=== PATIENT | female | born 1990 | race African-American/Black ===

== ENCOUNTER 2017-04-02 11:31 | Emergency (ER) | payer BC ==
[~2017-04-02] VITALS: Ht 165.1 cm; Wt 61.2 kg
[2017-04-02 11:48] VITALS: BP 119/76
[2017-04-02] MEDS ORDERED: HYDROcodone/APAP 5/325MG 1 TAB TABLET PO ONE (12:00)
[2017-04-02] MEDS ORDERED: AMOXICILLIN 250 MG CAPSULE. PO ONE (12:00)
[2017-04-02] MEDS ORDERED: AMOX875T PO (12:24)
[2017-04-02] MEDS ORDERED: TRAM-48 PO (12:24)
--- NOTE | 2017-04-02 12:25 | PHYS DOC ---
Past Medical History Past Medical History: No Pertinent History Past Surgical History: Other Additional Past Surgical Histo: right forehead Alcohol Use: None Drug Use: None Adult General Chief Complaint Chief Complaint: DENTAL PROBLEM HPI HPI Patient is a 26 year old female who presents with moderate right upper gum dental pain that began today. Patient denies any fever or trismus. Review of Systems Review of Systems Constitutional: Denies fever or chills [] Eyes: Denies change in visual acuity, redness, or eye pain [] HENT: Dental pain Musculoskeletal: Denies back pain or joint pain [] Integument: Denies rash or skin lesions [] Neurologic: Denies headache, focal weakness or sensory changes [] Current Medications Current Medications Current Medications Medications (Trade) Dose Ordered Sig/Jany Start Time Stop Time Status Last Admin Dose Admin Acetaminophen/ Hydrocodone Bitart (Lortab 5/325) 1 tab 1X ONCE 04/02/17 12:00 04/02/17 12:01 DC 04/02/17 12:09 1 TAB Amoxicillin (Amoxil) 500 mg 1X ONCE 04/02/17 12:00 04/02/17 12:01 DC 04/02/17 12:09 500 MG Allergies Allergies Allergies Coded Allergies Type Severity Reaction Last Updated Verified No Known Drug Allergies 01/21/16 No Physical Exam Physical Exam Constitutional: Well developed, well nourished, no acute distress, non-toxic appearance. [] HENT: Normocephalic, atraumatic, bilateral external ears normal, oropharynx moist, no oral exudates, nose normal. [] Tooth #1 appears decayed and broken. Scattered dental caries noted throughout her teeth. No gum erythema. Skin: Warm, dry, no erythema, no rash. [] Back: No tenderness, no CVA tenderness. [] Extremities: No tenderness, no cyanosis, no clubbing, ROM intact, no edema. [] Neurologic: Alert and oriented X 3, normal motor function, normal sensory function, no focal deficits noted. [] Psychologic: Affect normal, judgement normal, mood normal. [] Current Patient Data Vital Signs Vital Signs Date Time Temp Pulse Resp B/P (MAP) Pulse Ox O2 Delivery O2 Flow Rate FiO2 04/02/17 12:09 16 Room Air 04/02/17 11:48 98.1 71 96 98.1 EKG EKG [] Radiology/Procedures Radiology/Procedures [] Course & Med Decision Making Course & Med Decision Making Pertinent Labs and Imaging studies reviewed. (See chart for details) Patient has infected dental caries. Discharged with amoxicillin for 10 days and Ultram for pain. Follow-up with the dentist as soon as she can. Kanaon Disclaimer Dragon Disclaimer This electronic medical record was generated, in whole or in part, using a voice recognition dictation system. Departure Departure Impression: Primary Impression: Infected dental caries Additional Impression: Dentalgia Disposition: 01 HOME, SELF-CARE Condition: STABLE Referrals: ESTHER SHAH MD (PCP) Follow-up with your dentist as soon as possible Patient Instructions: Dental Caries-Brief, Dental Pain Additional Instructions: You were seen with infected dental caries. We discharged you with antibiotics. Take them as prescribed. Follow-up with the dentist as soon as you can. Scripts Tramadol Hcl (ULTRAM) 50 Mg Tablet 1 TAB PO Q6HRS, #30 TAB Prov: CECILE PATTON APRN 04/02/17 Amoxicillin (AMOXICILLIN) 875 Mg Tablet 1 TAB PO BID, #20 TAB Prov: CECILE PATTON APRN 04/02/17 Problem Qualifiers CECILE PATTON APRN Apr 02, 2017 12:25
== END 2017-04-02 12:37 | disposition home or self-care (01) ==
LOC: ER 11:31
DX: K04.7 Periapical abscess without sinus (principal); K02.9 Dental caries, unspecified
CPT/HCPCS: 99283